=== PATIENT | female | born 1965 | race African-American/Black ===

== ENCOUNTER 2021-05-10 16:29 | Emergency (ER) | payer MEDICARE, MEDICAID ==
[~2021-05-10] VITALS: Ht 165.1 cm; Wt 93.0 kg
[2021-05-10] MEDS ORDERED: KETOROLAC 60MG/2ML VIAL IM ONE (17:00)
[2021-05-10] MEDS ORDERED: METHOCARBAMOL 500MG TABLET PO ONE (17:00)
[2021-05-10] MEDS ORDERED: TRAMADOL 50MG TABLET PO ONE (18:30)
[2021-05-10] MEDS ORDERED: DIPHENHYDRAMINE 25MG CAPSULE PO ONE (18:30)
[2021-05-10] MEDS ORDERED: METH-773 MT (18:32)
[2021-05-10] MEDS ORDERED: NAPR-681 MT (18:32)
[2021-05-10 18:44] VITALS: BP 122/74
== END 2021-05-10 19:37 | disposition home or self-care (01) ==
LOC: ER 16:29
DX: S16.1XXA Strain of muscle, fascia and tendon at neck level, initial encounter (principal); S39.012A Strain of muscle, fascia and tendon of lower back, initial encounter; V49.59XA Passenger injured in collision with other motor vehicles in traffic accident, initial encounter; Y93.89 Activity, other specified; Y92.89 Other specified places as the place of occurrence of the external cause; Y99.8 Other external cause status; E11.9 Type 2 diabetes mellitus without complications; I10 Essential (primary) hypertension; Z90.710 Acquired absence of both cervix and uterus; Z90.49 Acquired absence of other specified parts of digestive tract; Z98.51 Tubal ligation status; F12.10 Cannabis abuse, uncomplicated
CPT/HCPCS: 72100; 96372; 99284; J1885; Q0163

== ENCOUNTER 2024-03-09 19:17 | Inpatient (IN) | payer MEDICARE, MEDICAID ==
[~2024-03-09] VITALS: Ht 165.1 cm; Wt 88.5 kg
[~2024-03-09 19:17] MED LIST: METH-773 MT; NAPR-681 MT
[2024-03-09 21:21] LABS: HEMATOCRIT. 42.7 % (36.0-48.0); HEMOGLOBIN. 14.3 g/dL (12.0-16.0); MEAN CORPUSCULAR HEMOGLOBIN 30.8 pg (28.0-32.0); MEAN CORPUSCULAR HGB CONC 33.5 g/dL (31.0-37.0); MEAN CORPUSCULAR VOLUME 92.1 fL (81.0-99.0); MEAN PLATELET VOLUME 9.4 fl (7.4-10.4); PLATELET 230 x1000/uL (130-400); RED BLOOD CELL COUNT 4.64 mill/uL (4.2-5.4); RED CELL DISTRIBUTION WIDTH 13.7 % (11.6-14.6); WHITE BLOOD COUNT 16.4 x1000/uL (4.5-11.0)
[2024-03-09 21:23] LABS: DIFFERENTIAL COMMENT 1
[2024-03-09 21:28] LABS: CHLORIDE 104 mEq/L (98-107); POTASSIUM 3.4 mEq/L (3.5-5.1); SODIUM 137 mEq/L (136-145)
[2024-03-09 21:29] LABS: CALCIUM 10.4 mg/dL (8.7-10.4); CARBON DIOXIDE 22 mEq/L (21-32)
[2024-03-09 21:34] LABS: GLUCOSE 270 mg/dL (70-105); PROTHROMBIN TIME 11.4 sec (9.6-11.0); UREA NITROGEN BLOOD 13 mg/dL (9-23)
[2024-03-09] MEDS: ONDANSETRON 4MG ODT PO ONE (22:05)
[2024-03-09] MEDS: PANTOPRAZOLE SODIUM 40 MG/VIAL IV ONE (22:30)
[2024-03-09] MEDS: KETOROLAC 30MG/ML VIAL IV ONE (23:15)
[2024-03-09 23:30] LABS: PLATELET ESTIMATE NORMAL
[2024-03-10 00:06] LABS: LACTIC ACID 4.1 mmol/L (0.4-2.0)
[2024-03-10] MEDS: SODIUM CHLORIDE 0.9% 1,000 ML IV ONE (01:11)
[2024-03-10] MEDS: SODIUM CHLORIDE 0.9% 1000ML BAG (SEPSIS BOLUS) IV ONE (01:16)
[2024-03-10] MEDS: ONDANSETRON 4MG ODT PO NR (01:31)
[2024-03-10] MEDS: LEVOFLOXACIN 500MG PREMIX 100 ML IV ONE (01:31)
[2024-03-10] MEDS: KETOROLAC 30MG/ML VIAL IV NR (01:32)
[2024-03-10] MEDS: PANTOPRAZOLE SODIUM 40 MG/VIAL IV NR (01:32)
[2024-03-10] MEDS: METOCLOPRAMIDE HCL 10MG/2ML VIAL IV NR (02:56)
[2024-03-10 03:44] LABS: CLARITY URINE CLEAR (CLEAR); COLOR URINE YELLOW (YELLOW)
[2024-03-10 03:45] LABS: GLUCOSE URINE 3+ (NEGATIVE); PH URINE 5.5 (4.5-8.0); PROTEIN URINE NEGATIVE (NEGATIVE)
[2024-03-10 03:46] LABS: KETONES URINE TRACE (NEGATIVE); LEUKOCYTE ESTERASE URINE NEGATIVE (NEGATIVE); NITRITE URINE NEGATIVE (NEGATIVE); OCCULT BLOOD URINE TRACE (NEGATIVE); UROBILINOGEN URINE 0.2 E.U./dL (0.2-1.0)
[2024-03-10] MEDS ORDERED: CLONIDINE 0.1MG TABLET PO PRN (04:15)
[2024-03-10] MEDS ORDERED: ACETAMINOPHEN 325MG TABLET PO PRN ×2 (04:15)
[2024-03-10] MEDS ORDERED: DEXTROSE 50% WATER 50ML SYRINGE IV PRN (04:15)
[2024-03-10] MEDS ORDERED: MAGNESIUM/ALUMINUM HYDROXIDE/SIMETHICONE 30ML UDC PO PRN (04:15)
[2024-03-10] MEDS ORDERED: IPRATROPIUM/ALBUTEROL 0.5-3(2.5)MG/3ML NEB HHN PRN (04:15)
[2024-03-10] MEDS ORDERED: GUAIFENESIN 200MG/10ML SUGAR FREE UDC PO PRN (04:15)
[2024-03-10] MEDS ORDERED: DOCUSATE SODIUM 100MG CAPSULE PO PRN (04:15)
[2024-03-10] MEDS ORDERED: ONDANSETRON HCL 4MG/2ML INJ IV PRN ×2 (04:15→16:15)
[2024-03-10] MEDS ORDERED: KETOROLAC 15MG/ML VIAL IV ONE (04:45)
[2024-03-10] MEDS ORDERED: DIPHENHYDRAMINE 25MG CAPSULE PO PRN (05:00)
[2024-03-10 05:54] LABS: SQUAMOUS EPITHELIAL CELL URINE 1+ /lpf (RARE/1+)
[2024-03-10 05:55] LABS: RBC URINE 0-2 /hpf (0-2)
[2024-03-10 05:57] LABS: BACTERIA URINE 1+
[2024-03-10] MEDS: SUCRALFATE 1G TABLET PO SCH (05:57)
[2024-03-10] MEDS: TRAMADOL 50MG TABLET PO NR (05:59)
[2024-03-10] MEDS: POTASSIUM CHLORIDE 20MEQ TABLET SR PO NR (06:05)
[2024-03-10] MEDS: ONDANSETRON HCL 4MG/2ML INJ IV NR (06:07)
[2024-03-10] MEDS: LACTATED RINGERS 1,000 ML IV SCH (06:08)
[2024-03-10 06:30] LABS: CARBON DIOXIDE 19 mEq/L (21-32); CHLORIDE 111 mEq/L (98-107); POTASSIUM 3.1 mEq/L (3.5-5.1); SODIUM 141 mEq/L (136-145)
[2024-03-10 06:35] LABS: CREATINE KINASE MB FRACTION 4.8 ng/mL (0.5-3.6)
[2024-03-10 06:36] LABS: CREATININE 0.9 mg/dL (0.6-1.0); GLUCOSE 188 mg/dL (70-105); PHOSPHORUS 1.5 mg/dL (2.5-4.9); UREA NITROGEN BLOOD 15 mg/dL (9-23)
[2024-03-10 06:41] LABS: CREATINE KINASE 252 IU/L (34-145)
[2024-03-10 06:44] LABS: TROPONIN I HIGH SENSITIVITY < 4 ng/L (3.0-34)
[2024-03-10 06:58] LABS: HEMATOCRIT. 38.1 % (36.0-48.0); HEMOGLOBIN. 12.5 g/dL (12.0-16.0); MEAN CORPUSCULAR HEMOGLOBIN 30.1 pg (28.0-32.0); MEAN CORPUSCULAR HGB CONC 32.7 g/dL (31.0-37.0); MEAN CORPUSCULAR VOLUME 91.9 fL (81.0-99.0); MEAN PLATELET VOLUME 9.9 fl (7.4-10.4); PLATELET 195 x1000/uL (130-400); RED BLOOD CELL COUNT 4.15 mill/uL (4.2-5.4); RED CELL DISTRIBUTION WIDTH 13.5 % (11.6-14.6); WHITE BLOOD COUNT 14.4 x1000/uL (4.5-11.0)
[2024-03-10] MEDS ORDERED: METRONIDAZOLE 1000 MG PREMIX 200 ML IV SCH (07:15)
[2024-03-10 07:32] LABS: DIFFERENTIAL COMMENT 1
[2024-03-10 08:26] VITALS: BP 191/90; PULSE 76; RESP 20; TEMP 36.3918; O2SAT 98
[2024-03-10] MEDS: METOPROLOL SUCCINATE 50MG ER TABLET PO SCH (10:13)
[2024-03-10] MEDS: METRONIDAZOLE 500 MG PREMIX 100 ML IV SCH (10:14)
[2024-03-10 10:47] VITALS: BP 191/96; PULSE 97; RESP 26; TEMP 35.9176
[2024-03-10] MEDS: PANTOPRAZOLE SODIUM 40 MG/VIAL IV SCH (11:15)
[2024-03-10] MEDS: MAGNESIUM 2 G PREMIX 50 ML IV NR (11:15)
[2024-03-10] MEDS: BLOOD SUGAR DIAGNOSTIC STRIP TEST SCH (11:26)
[2024-03-10] MEDS: INSULIN LISPRO 100 UNITS/ML SUBCUT SCH (11:26)
[2024-03-10 12:00] VITALS: BP 176/91; PULSE 105; RESP 20; TEMP 37.00296; O2SAT 98
[2024-03-10] MEDS: POTASSIUM PHOSPHATE 30 MMOL in DEXT 5% WATER 490 ML IV NR (12:17)
[2024-03-10] MEDS: IBUPROFEN 600MG TABLET PO NR (12:17)
[2024-03-10 13:23] LABS: PLATELET ESTIMATE NORMAL
[2024-03-10 16:00] VITALS: BP 125/74; PULSE 90; RESP 18; TEMP 36.89184; O2SAT 97
[2024-03-10 16:36] LABS: CLARITY URINE CLEAR (CLEAR); COLOR URINE YELLOW (YELLOW); GLUCOSE URINE NEGATIVE (NEGATIVE); KETONES URINE 2+ (NEGATIVE); LEUKOCYTE ESTERASE URINE NEGATIVE (NEGATIVE); NITRITE URINE NEGATIVE (NEGATIVE); OCCULT BLOOD URINE 1+ (NEGATIVE); PH URINE 5.5 (4.5-8.0); PROTEIN URINE 1+ (NEGATIVE); SPECIFIC GRAVITY URINE 1.052 (1.005-1.030); UROBILINOGEN URINE 0.2 E.U./dL (0.2-1.0)
[2024-03-10 16:45] LABS: CREATINE KINASE MB FRACTION 7.9 ng/mL (0.5-3.6)
[2024-03-10 16:46] LABS: TROPONIN I HIGH SENSITIVITY 12 ng/L (3.0-34)
[2024-03-10 16:47] LABS: CREATINE KINASE 710 IU/L (34-145)
[2024-03-10 16:54] LABS: *AMPHETAMINES SCREEN URINE NEGATIVE (NEGATIVE); *BARBITURATES SCREEN URINE NEGATIVE (NEGATIVE); *BENZODIAZEPINES SCREEN URINE NEGATIVE (NEGATIVE); *COCAINE SCREEN URINE NEGATIVE (NEGATIVE); METHADONE URINE SCREEN NEGATIVE (NEGATIVE); OPIATES URINE SCREEN PRESUMPTIVE POSITIVE (NEGATIVE); PHENCYCLIDINE URINE SCREEN NEGATIVE (NEGATIVE)
[2024-03-10 16:55] LABS: CANNABINOID URINE SCREEN PRESUMPTIVE POSITIVE (NEGATIVE); ECSTASY MDMA SCREEN URINE NEGATIVE (NEGATIVE)
[2024-03-10 17:22] LABS: BACTERIA URINE 2+; SQUAMOUS EPITHELIAL CELL URINE FEW /lpf (RARE/1+)
[2024-03-10 17:23] LABS: WBC URINE 0-2 /hpf (0-2)
[2024-03-10] MEDS: METOCLOPRAMIDE HCL 10MG/2ML VIAL IV SCH (17:24)
[2024-03-10 20:00] VITALS: BP 126/70; PULSE 85; RESP 20; TEMP 37.11408; O2SAT 96
[2024-03-11] VITALS: BP 149/77; PULSE 76; RESP 18; TEMP 37.33632; O2SAT 97
[2024-03-11] MEDS: LEVOFLOXACIN 750MG PREMIX 150 ML IV SCH ×2 (00:55→21:30)
[2024-03-11 04:00] VITALS: BP 147/86; PULSE 77; RESP 20; TEMP 37.2252; O2SAT 99
[2024-03-11 06:34] LABS: CHLORIDE 108 mEq/L (98-107); POTASSIUM 3.5 mEq/L (3.5-5.1); SODIUM 141 mEq/L (136-145)
[2024-03-11 06:35] LABS: CALCIUM 9.4 mg/dL (8.7-10.4); CARBON DIOXIDE 21 mEq/L (21-32)
[2024-03-11] MEDS: LORAZEPAM 0.5MG TABLET PO PRN (06:36)
[2024-03-11 06:40] LABS: CREATININE 0.8 mg/dL (0.6-1.0); GLUCOSE 161 mg/dL (70-105); UREA NITROGEN BLOOD 11 mg/dL (9-23)
[2024-03-11 06:44] LABS: THYROID STIMULATING HORMONE 2.71 uIU/mL (0.55-4.78)
[2024-03-11 06:52] LABS: BASOPHILS % 0.1 % (0.0-2.0); EOSINOPHILS % 0.1 % (0.0-5.0); HEMATOCRIT. 39.6 % (36.0-48.0); HEMOGLOBIN. 13.1 g/dL (12.0-16.0); LYMPHOCYTES % 11.9 % (20.0-50.0); MEAN CORPUSCULAR HEMOGLOBIN 30.5 pg (28.0-32.0); MEAN CORPUSCULAR HGB CONC 33.1 g/dL (31.0-37.0); MEAN CORPUSCULAR VOLUME 92.1 fL (81.0-99.0); MEAN PLATELET VOLUME 9.8 fl (7.4-10.4); MONOCYTES % 4.4 % (2.0-8.0); NEUTROPHILS % 83.5 % (40.0-76.0); PLATELET 188 x1000/uL (130-400); RED CELL DISTRIBUTION WIDTH 13.7 % (11.6-14.6); WHITE BLOOD COUNT 15.7 x1000/uL (4.5-11.0)
[2024-03-11 08:00] VITALS: BP 144/84; PULSE 88; RESP 18; TEMP 36.28068; O2SAT 100
[2024-03-11 11:39] LABS: BASOPHILS % 0.1 % (0.0-2.0); HEMATOCRIT. 38.5 % (36.0-48.0); HEMOGLOBIN. 12.5 g/dL (12.0-16.0); MEAN CORPUSCULAR HGB CONC 32.6 g/dL (31.0-37.0); MEAN CORPUSCULAR VOLUME 92.1 fL (81.0-99.0); MEAN PLATELET VOLUME 9.3 fl (7.4-10.4); MONOCYTES % 4.4 % (2.0-8.0); NEUTROPHILS % 86.5 % (40.0-76.0); PLATELET 177 x1000/uL (130-400); RED BLOOD CELL COUNT 4.18 mill/uL (4.2-5.4); RED CELL DISTRIBUTION WIDTH 13.5 % (11.6-14.6); WHITE BLOOD COUNT 14.6 x1000/uL (4.5-11.0)
[2024-03-11 11:53] LABS: CARBON DIOXIDE 22 mEq/L (21-32); CHLORIDE 109 mEq/L (98-107); POTASSIUM 3.6 mEq/L (3.5-5.1); SODIUM 141 mEq/L (136-145)
[2024-03-11 11:54] LABS: CALCIUM 9.4 mg/dL (8.7-10.4)
[2024-03-11 11:59] LABS: CREATININE 0.7 mg/dL (0.6-1.0); GLUCOSE 135 mg/dL (70-105); UREA NITROGEN BLOOD 11 mg/dL (9-23)
[2024-03-11 12:00] VITALS: BP 137/65; PULSE 79; RESP 20; TEMP 36.114; O2SAT 100
[2024-03-11 16:00] VITALS: BP 149/81; PULSE 81; TEMP 36.6696
[2024-03-11 20:00] VITALS: BP 142/86; PULSE 82; RESP 20; TEMP 37.05852; O2SAT 96
[2024-03-11] MEDS: KETOROLAC 15MG/ML VIAL IV NR (22:31)
[2024-03-12] VITALS (9 sets, daily range): BP systolic 142–160; BP diastolic 58–77; PULSE 59–71; RESP 18–20; TEMP 36.28068–37.05852; O2SAT 92–100
[2024-03-12 04:12] LABS: CHLORIDE 108 mEq/L (98-107); POTASSIUM 3.6 mEq/L (3.5-5.1); SODIUM 141 mEq/L (136-145)
[2024-03-12 04:13] LABS: CARBON DIOXIDE 24 mEq/L (21-32)
[2024-03-12 04:18] LABS: GLUCOSE 84 mg/dL (70-105); UREA NITROGEN BLOOD 13 mg/dL (9-23)
[2024-03-12 04:20] LABS: ALANINE AMINOTRANSFERASE 29 IU/L (10-49); ALBUMIN 4.3 g/dL (3.2-4.8); ASPARTATE AMINOTRANSFERASE 39 IU/L (<34)
[2024-03-12 04:21] LABS: BILIRUBIN TOTAL 0.5 mg/dL (0.1-1.0); PROTEIN TOTAL 6.5 g/dL (6.0-8.3)
[2024-03-12 04:22] LABS: INR 1.1; PROTHROMBIN TIME 11.7 sec (9.6-11.0)
[2024-03-12 05:18] LABS: CREATININE 0.8 mg/dL (0.6-1.0)
[2024-03-12 06:54] LABS: BASOPHILS % 0.1 % (0.0-2.0); EOSINOPHILS % 0.2 % (0.0-5.0); HEMATOCRIT. 36.1 % (36.0-48.0); HEMOGLOBIN. 11.9 g/dL (12.0-16.0); LYMPHOCYTES % 26.9 % (20.0-50.0); MEAN CORPUSCULAR HEMOGLOBIN 30.2 pg (28.0-32.0); MEAN CORPUSCULAR HGB CONC 32.8 g/dL (31.0-37.0); MEAN CORPUSCULAR VOLUME 92.1 fL (81.0-99.0); MEAN PLATELET VOLUME 9.7 fl (7.4-10.4); MONOCYTES % 6.3 % (2.0-8.0); NEUTROPHILS % 66.5 % (40.0-76.0); PLATELET 181 x1000/uL (130-400); RED BLOOD CELL COUNT 3.92 mill/uL (4.2-5.4); RED CELL DISTRIBUTION WIDTH 13.5 % (11.6-14.6)
[2024-03-12] MEDS: TRAMADOL 50MG TABLET PO NR (22:49)
[2024-03-13] VITALS: BP 167/74; PULSE 63; RESP 18; TEMP 36.89184; O2SAT 98
[2024-03-13] MEDS: LABETALOL 5MG/ML 4ML INJ IV PRN (00:57)
[2024-03-13 03:27] LABS: BASOPHILS % 0.3 % (0.0-2.0); EOSINOPHILS % 0.7 % (0.0-5.0); HEMATOCRIT. 35.7 % (36.0-48.0); HEMOGLOBIN. 11.9 g/dL (12.0-16.0); LYMPHOCYTES % 32.1 % (20.0-50.0); MEAN CORPUSCULAR HEMOGLOBIN 30.3 pg (28.0-32.0); MEAN CORPUSCULAR HGB CONC 33.3 g/dL (31.0-37.0); MEAN PLATELET VOLUME 9.3 fl (7.4-10.4); MONOCYTES % 6.9 % (2.0-8.0); PLATELET 170 x1000/uL (130-400); RED BLOOD CELL COUNT 3.92 mill/uL (4.2-5.4); RED CELL DISTRIBUTION WIDTH 13.2 % (11.6-14.6); WHITE BLOOD COUNT 9.1 x1000/uL (4.5-11.0)
[2024-03-13 03:28] LABS: CARBON DIOXIDE 25 mEq/L (21-32); CHLORIDE 107 mEq/L (98-107); POTASSIUM 2.9 mEq/L (3.5-5.1); SODIUM 140 mEq/L (136-145)
[2024-03-13 03:29] LABS: CALCIUM 8.8 mg/dL (8.7-10.4)
[2024-03-13 03:34] LABS: CREATININE 0.7 mg/dL (0.6-1.0); GLUCOSE 95 mg/dL (70-105); UREA NITROGEN BLOOD 9 mg/dL (9-23)
[2024-03-13 03:35] LABS: INR 1.1; PROTHROMBIN TIME 11.9 sec (9.6-11.0)
[2024-03-13 04:00] VITALS: BP 143/52; PULSE 69; RESP 18; TEMP 36.55848; O2SAT 98
[2024-03-13 08:00] VITALS: BP 154/64; PULSE 80; RESP 20; TEMP 36.61404; O2SAT 98
[2024-03-13] MEDS: KCL 20MEQ/100ML PREMIX 100 ML IV SCH (08:45)
[2024-03-13] MEDS ORDERED: SIMETHICONE 40 MG/0.6 ML 15ML ONE (09:27)
[2024-03-13] MEDS ORDERED: PROPOFOL 200MG/20ML VIAL IV ONE (09:28)
[2024-03-13] MEDS ORDERED: ONDANSETRON HCL 4MG/2ML INJ IV PRN (10:15)
[2024-03-13] MEDS ORDERED: POTA1POW11 MC (11:09)
[2024-03-13] MEDS ORDERED: PROT40 MT (11:09)
[2024-03-13] MEDS ORDERED: ONDA4TAB50 MT (11:09)
[2024-03-13] MEDS ORDERED: SUCR1TAB MT (11:09)
[2024-03-13 12:00] VITALS: BP 137/62; PULSE 67; RESP 20; TEMP 36.61404; O2SAT 100
[2024-03-13] MEDS: MAGNESIUM 2 G PREMIX 50 ML IV NR (12:29)
[2024-03-13 15:54] VITALS: BP 131/68; PULSE 78; TEMP 98; O2SAT 98
[2024-03-13 16:00] VITALS: BP 143/56; PULSE 61; RESP 18; TEMP 36.55848; O2SAT 98
[2024-03-13] MEDS ORDERED: LEVOFLOXACIN 250MG TABLET PO SCH (21:00)
== END 2024-03-13 19:45 | disposition home or self-care (01) | DRG 872 ==
LOC: ER 19:17 → 5WST 03-10 01:48 → EDBEDREQTM 03-10 02:19 → EDBEDREQ 03-10 02:19 → 8WST 03-10 07:33
PROVIDERS: ADMIT Internal Medicine; ATTEND Internal Medicine
PROC: 0DB78ZX Excision of Stomach, Pylorus, Via Natural or Artificial Opening Endoscopic, Diagnostic (ICD-10-PCS; principal; 2024-03-13)
DX: A41.9 Sepsis, unspecified organism (principal); R65.20 Severe sepsis without septic shock; K57.30 Diverticulosis of large intestine without perforation or abscess without bleeding; A08.4 Viral intestinal infection, unspecified; E87.6 Hypokalemia; E11.65 Type 2 diabetes mellitus with hyperglycemia; E66.9 Obesity, unspecified; I10 Essential (primary) hypertension; E83.42 Hypomagnesemia; E78.5 Hyperlipidemia, unspecified; K21.9 Gastro-esophageal reflux disease without esophagitis; K29.50 Unspecified chronic gastritis without bleeding; Z68.32 Body mass index [BMI] 32.0-32.9, adult; Z79.899 Other long term (current) drug therapy; Z90.710 Acquired absence of both cervix and uterus; Z79.4 Long term (current) use of insulin; Z88.6 Allergy status to analgesic agent; Z88.5 Allergy status to narcotic agent
CPT/HCPCS: 36415; 71045; 74174; 74176; 80048; 80053; 80061; 80305; 81003; 82550; 82553; 82962; 83036; 83605; 83735; 84100; 84145; 84443; 84484; 85025; 88305; 88312; 88313; 94640; 99285; J1885; J1956; J2405; J2470; J2704; J2765; J3475; J3480; J3490; J7030; J7060; J7120; Q0162